=== PATIENT | female | born 1985 | race African-American/Black ===

== ENCOUNTER → 2023-08-28 | Outpatient (CLI) | payer OTHER ==
[~2023-08-28] MED LIST: Iohexol 300 - 10 ML VIAL ONE; Lidocaine PF 2% (20 MG/ML) 2 ML VIAL ONE
== END ==
LOC: MHCPAIN 08:43
DX: M54.16 Radiculopathy, lumbar region (principal)
CPT/HCPCS: J1100; Q9967

== ENCOUNTER → 2023-10-23 | Outpatient (CLI) | payer OTHER | LOC: MHCPAIN 08:16 | DX: M47.817 Spondylosis without myelopathy or radiculopathy, lumbosacral region (principal); M47.816 Spondylosis without myelopathy or radiculopathy, lumbar region | CPT/HCPCS: J1100; Q9967 ==

== ENCOUNTER → 2023-11-03 | Outpatient (CLI) | payer OTHER | LOC: MHCPAIN 10:37 | DX: M51.A4 Intervertebral annulus fibrosus defect, small, lumbosacral region (principal); M47.816 Spondylosis without myelopathy or radiculopathy, lumbar region; M48.061 Spinal stenosis, lumbar region without neurogenic claudication; M25.78 Osteophyte, vertebrae | CPT/HCPCS: G0463 ==

== ENCOUNTER → 2023-11-21 | Outpatient (CLI) | payer OTHER | LOC: MHCPAIN 09:29 | DX: M47.816 Spondylosis without myelopathy or radiculopathy, lumbar region (principal); M51.A3 Intervertebral annulus fibrosus defect, lumbosacral region, unspecified size; M48.061 Spinal stenosis, lumbar region without neurogenic claudication; M54.50 Low back pain, unspecified | CPT/HCPCS: G0463 ==

== ENCOUNTER → 2023-12-11 | Outpatient (CLI) | payer OTHER | LOC: MHCPAIN 07:46 | DX: M54.17 Radiculopathy, lumbosacral region (principal); M54.50 Low back pain, unspecified | CPT/HCPCS: J1100; Q9967 ==

== ENCOUNTER → 2023-12-18 | Outpatient (CLI) | payer OTHER | LOC: MHCPAIN 08:59 | DX: M47.812 Spondylosis without myelopathy or radiculopathy, cervical region (principal); M54.2 Cervicalgia | CPT/HCPCS: J0665 ==